=== PATIENT | male | born 1990 | race Caucasian/White ===

== ENCOUNTER 2020-06-30 02:01 | Emergency (ER) | payer OTHER, SELFPAY ==
--- NOTE | ~2020-06-30 | XR_ITS ---
EXAMINATION: XR chest 2V DATE: 06/30/2020 02:31 INDICATION: Chest pain TECHNIQUE: PA and lateral views of the chest are obtained. COMPARISON: None available FINDINGS: The lungs are free of acute opacities. There is no pleural effusion or pneumothorax. The ca rdiomediastinal silhouette is normal. The visualized bones and soft tissues are unremarkable. IMPRESSION: 1. No acute cardiopulmonary abnormality. Reviewed, dictated and finalized at location A. ICAL FELLOW
[2020-06-30 02:04] VITALS: BP 160/107; PULSE 74; RESP 23; TEMP 37.1; O2SAT 100
--- NOTE | 2020-06-30 02:11 | ED.CHESTPAIN ---
HPI - Chest Pain General Chief Complaint: Chest Pain Stated Complaint: chest pain with cardiac history Time Seen by Provider: 06/30/20 02:11 History of Present Illness HPI narrative: 29 yo male w/ h/o bicuspid aortic valve presents to the ED for chest pain. Sharp right sided chest pain for about 30 minutes. Started while using his computer and getting ready for bed. 7/10 in severity. radiated to the right jaw. Associated with SOB. On arrival to the ED his pain is now 2/10. Related Data Home Medications Medication Instructions Recorded Confirmed ibuprofen 400 mg PO BID 06/30/20 metoprolol tartrate 12.5 mg PO BID 06/30/20 pantoprazole 40 mg PO QAM 06/30/20 Allergies Allergy/AdvReac Type Severity Reaction Status Date / Time No Known Allergies Allergy Verified 06/30/20 02:15 Review of Systems Review of Systems: All systems reviewed & are unremarkable except as noted in HPI and below Constitutional: Constitutional: Denies chills and Denies fever(s) Eyes: Eyes: Reports no additional eye complaints ENT: Reports system reviewed and no additional complaints, except as documented Cardiovascular: Cardiovascular: Reports chest pain Respiratory: Respiratory: Reports as per HPI Gastrointestinal: Gastrointestinal: Reports no additional gastrointestinal complaints Neurologic: Reports dizziness PMFSH Past Medical History Medical History (Updated 06/30/20 @ 05:49 by Shay Gore MD) Bicuspid aortic valve Chest pain GERD (gastroesophageal reflux disease) Social History Social History (Updated 06/30/20 @ 03:41 by Shay Gore MD) Smoking status: Never smoker Exam Const: General: healthy appearing, no acute distress and alert Orientation/consciousness: patient oriented x3 HENMT: Head: normal to inspection Neck: Neck: normal visual inspection and no lymphadenopathy Chest: Chest palpation & inspection: no tenderness Resp: Effort & Inspection: normal respiratory effort Auscultation: clear to auscultation bilaterally, no rales, no rhonchi and no wheezes Cardio: Jugular venous distension: no JVD Rate: regular rate Rhythm: regular rhythm Heart sounds: no murmurs GI: Inspection: non-distended GI Palp: Yes Soft to palpation and No Tenderness to palpation present (GI) Skin: General skin exam: normal color Neuro: General: patient oriented x3, moves all extremities, no focal motor deficits and CN's II-XI intact bilaterally Speech: normal speech Gait exam (Neuro): Normal gait present Extrem: General: no edema Psych: Appearance: well kempt Affect: Anxious affect present Course Vital Signs Vital signs: Vital Signs Temperature 37.1 C 06/30/20 02:04 Pulse Rate 74 06/30/20 02:04 Respiratory Rate 23 H 06/30/20 02:04 Blood Pressure 160/107 H 06/30/20 02:04 Pulse Oximetry 100 06/30/20 02:04 Temperature 37.1 C 06/30/20 02:04 Pulse Rate 74 06/30/20 02:04 Respiratory Rate 23 H 06/30/20 02:04 Blood Pressure 160/107 H 06/30/20 02:04 Pulse Oximetry 100 06/30/20 02:13 MDM - Chest Pain Differential Diagnosis Differential diagnosis: Likely atypical chest pain, chest pain and other (GERD) Medical Records Data Attestation: I reviewed the patient's medical records. Lab Data Attestation: I reviewed the patient's lab results. Result diagrams: 06/30/20 02:50 06/30/20 02:50 Labs: Lab Results 06/30/20 06/30/20 06/30/20 Range/Units 02:50 02:50 02:50 WBC 8.2 (4.5-10.0) K/mm3 RBC 5.64 (4.6-6.20) M/mm3 Hgb 16.4 (14.0-18.0) g/dL Hct 48.1 (42.0-52.0) % MCV 85.3 (80-100) fl MCH 29.1 (26-34) pg MCHC 34.1 (32-36) g/dl RDW 12.9 (11.5-14.5) % Plt Count 175 (150-375) k/mm3 MPV 12.2 H (7.4-10.4) fl Immature Gran % (Auto) 0.2 (0-0.5) % Neut % (Auto) 51.2 (45.5-73.1) % Lymph % (Auto) 38.8 (18.3-44.2) % [place] % (Auto) 7.8 (2.6-8.5) % Eos % (Auto) 1.3 (0-4.4) % Ba
[2020-06-30 02:13] VITALS: O2SAT 100
--- NOTE | 2020-06-30 02:14 | ECG_ITS ---
Measurements Intervals [place] Rate: 72 P: 39 [place]: 129 QRS: -21 QRSD: 109 T: 25 QT: 377 QTc: 414 Interpretive Statements SINUS RHYTHM INCOMPLETE RIGHT BUNDLE BRANCH BLOCK BORDERLINE ECG Electronically Signed On 06-30-2020 7:06:49 CANDY COUNTER CLERK by Navid Wiggins D.O.
[2020-06-30] MEDS: ASPIRIN 81 MG CHEWABLE TABLET 324 MG PO (02:20)
[2020-06-30 03:09] LABS: Basophils Absolute Auto 0.1 K/mm3 (0.0-0.1); Basophils Percent Auto 0.7 % (0.2-1.2); Eosinophils Absolute Auto 0.1 K/mm3 (0-0.3); Eosinophils Percent Auto 1.3 % (0-4.4); Hematocrit 48.1 % (42.0-52.0); Hemoglobin 16.4 g/dL (14.0-18.0); Immature Granulocyte Absolute 0.02 K/mm3 (0.00-0.031); Immature Granulocyte Percent A 0.2 % (0-0.5); Lymphocytes Absolute Auto 3.19 K/mm3 (0.9-3.2); Lymphocytes Percent Auto 38.8 % (18.3-44.2); Mean Corpuscular HGB Conc 34.1 g/dl (32-36); Mean Corpuscular Hemoglobin 29.1 pg (26-34); Mean Corpuscular Volume 85.3 fl (80-100); Mean Platelet Volume 12.2 fl (7.4-10.4); Monocytes Absolute Auto 0.6 K/mm3 (0.1-0.6); Monocytes Percent Auto 7.8 % (2.6-8.5); Neutrophils Absolute Auto 4.2 K/mm3 (1.3-6.7); Neutrophils Percent Auto 51.2 % (45.5-73.1); Platelet Count Result 175 k/mm3 (150-375); Red Blood Count 5.64 M/mm3 (4.6-6.20); Red Cell Distribution Width 12.9 % (11.5-14.5); White Blood Count 8.2 K/mm3 (4.5-10.0)
[2020-06-30 03:19] LABS: INR 0.8; Prothrombin Time 11.9 Seconds (11.1-14.7)
[2020-06-30 03:20] LABS: Partial Thromboplastin Time 25.4 SECONDS (22.3-36.8)
[2020-06-30 03:22] LABS: Anion Gap 10 mmol/L (8-16); Blood Urea Nitrogen 15 mg/dL (9-20); Calcium 9.7 mg/dL (8.4-10.2); Carbon Dioxide 30 mmol/L (22-30); Chloride 103 mmol/L (98-107); Estimated CRCL calculation 140 ml/min; Estimated Glomerular Filt Rate > 60; Glucose 104 mg/dL (75-110); Potassium 3.9 mmol/L (3.4-5.0); Sodium 143 mmol/L (137-145)
[2020-06-30 03:33] LABS: Troponin I < 0.012 ng/mL (0.000-0.034)
[2020-06-30 05:42] LABS: Troponin I < 0.012 ng/mL (0.000-0.034)
[2020-06-30 06:09] VITALS: BP 115/71; PULSE 76; RESP 16; TEMP 36.3; O2SAT 98
== END 2020-06-30 06:09 | disposition home or self-care (01) ==
PROVIDERS: Emergency Provider Emergency Medicine; PCP Internal Medicine
DX: R07.89 Other chest pain (principal); K21.9 Gastro-esophageal reflux disease without esophagitis; I45.10 Unspecified right bundle-branch block; I35.9 Nonrheumatic aortic valve disorder, unspecified
CPT/HCPCS: 36415; 71046; 80048; 84484; 85025; 85610; 85730; 93005; 99284; A9270

== ENCOUNTER → 2020-07-29 00:55 | Outpatient (CLI) | payer OTHER, SELFPAY ==
[2020-07-29 19:49] LABS: SARS-CoV-2 RNA PCR Negative
== END ==
PROVIDERS: PCP Internal Medicine; Visit Provider Internal Medicine Gastroenterology
DX: Z01.812 Encounter for preprocedural laboratory examination (principal); Z20.822 Contact with and (suspected) exposure to COVID-19
CPT/HCPCS: C9803; U0003; U0005

== ENCOUNTER 2020-08-01 02:01 | Day surgery (SDC) | payer OTHER, SELFPAY ==
[2020-07-25 13:53] VITALS: BMI 30.9
[2020-08-01 09:28] VITALS: BP 125/85; PULSE 66; RESP 16; TEMP 36.3; O2SAT 100; BMI 31.6
[2020-08-01] MEDS: LACTATED RINGERS 1,000 ML 150 ML IV CONT (09:35)
--- NOTE | 2020-08-01 09:45 | WPDANESEPPF ---
Anes - Initial Pre Proc Eval Procedure: Operation Date: 08/01/20 10:45 Proposed Procedures p Esophagogastroduodenoscopy - Ke Mccallum MD Date/Time: 08/01/20 09:45 Surgeon: Ke Mccallum MD Pre Op Diagnosis: Atypical Chest Pain Patient Data Age: 29 Gender: M Height: 5 ft 9 in Weight: 97.2 kg Last Vital Signs Temp 97.4 F L 08/01/20 09:28 Pulse 66 08/01/20 09:28 Resp 16 08/01/20 09:28 BP 125/85 08/01/20 09:28 Pulse Ox 100 08/01/20 09:28 Allergies Allergy/AdvReac Type Severity Reaction Status Date / Time No Known Allergies Allergy Verified 08/01/20 09:27 Home Medications Medication Instructions Recorded Confirmed Type ibuprofen 400 mg PO BID 06/30/20 History metoprolol tartrate 12.5 mg PO BID 06/30/20 07/25/20 History pantoprazole 40 mg PO QAM 06/30/20 07/25/20 History Patient hx anesthesia problems: none Family hx anesthesia problems: none [facility] Past Medical History Medical History (Updated 07/01/20 @ 00:00 by Derek Palacios) Bicuspid aortic valve Chest pain GERD (gastroesophageal reflux disease) Social History Social History (Updated 06/30/20 @ 03:41 by Shay Gore MD) Smoking status: Never smoker Drinks per week: 3 Living arrangements: with family Gender identity (if verbalized by the patient): Male Spiritual care concerns: No Anes - Eval Final PreProcedure Day of Procedure 08/01/20 09:45 Patient weight: overweight Heart: regular rate and rhythm Lungs: clear to auscultation Airway: Mallampati scale class II Neurological: alert and oriented Last oral intake: >/= 8 hours ASA classification: II Emergent: no Anesthetic plan: proceed Anesthesia type and monitoring: general GIVS and standard monitoring Informed Consent: The patient's anesthetic plan and its attendant risks and benefits were discussed with the patient/family/POA. Questions were solicited and answers provided to the satisfaction of the patient/family/POA.
--- NOTE | 2020-08-01 10:05 | PM.HPGS ---
History of Present Illness History of Present Illness Consent: Risks, benefits, and alternatives have been discussed and questions answered. Patient agrees to proceed with procedure. Chief complaint: Atypical Chest Pain Narrative: Renard Samuel is a 29 year old male with gerd on pantoprazole for a year with good control of reflux but lately non-cardiac chest pain (cardiac work up negative), never had egd Review of Systems Constitutional: Constitutional: Denies headache(s) and Denies weakness Eyes: Eyes: Denies blurry vision ENT: Reports Normal hearing present, Denies headache(s) and Denies neck pain Cardiovascular: Cardiovascular: Denies chest pain and Denies dyspnea Respiratory: Respiratory: Denies dyspnea Gastrointestinal: Gastrointestinal: Reports no additional gastrointestinal complaints Genitourinary: Genitourinary: Denies dysuria Musculoskeletal: Musculoskeletal: Denies neck pain Integumentary/Breasts: Skin/Breast: Denies dry skin Neurologic: Reports Normal hearing present, Denies headache(s) and Denies weakness Psychiatric: Psychiatric: Denies anxiety Endocrine: Endocrine: Denies change in body appearance Hematologic/Lymphatic: Hematologic/Lymphatic: Denies easy bleeding Allergic/Immunologic: Allergic/Immunologic: Denies urticaria PMFSH Past Medical History Medical History (Updated 08/01/20 @ 10:07 by Ke Mccallum MD) Bicuspid aortic valve Chest pain GERD (gastroesophageal reflux disease) Non-cardiac chest pain Social History Social History (Updated 06/30/20 @ 03:41 by Shay Gore MD) Smoking status: Never smoker Drinks per week: 3 Living arrangements: with family Gender identity (if verbalized by the patient): Male Spiritual care concerns: No Meds Home Medications and Allergies Home Medications Medication Instructions Recorded Confirmed Type ibuprofen 400 mg PO BID 06/30/20 History metoprolol tartrate 12.5 mg PO BID 06/30/20 07/25/20 History pantoprazole 40 mg PO QAM 06/30/20 07/25/20 History Allergies Allergy/AdvReac Type Severity Reaction Status Date / Time No Known Allergies Allergy Verified 08/01/20 09:27 Vital Signs Vital Signs - 24 hr 08/01/20 09:28 Temperature 97.4 F L Pulse Rate 66 Respiratory Rate 16 Blood Pressure 125/85 Pulse Oximetry 100 Exam Const: General: comfortable and no acute distress HENMT: General nose exam: Normal nares present Eyes: General: appearance normal, both eyes and all related structures Neck: Neck: no JVD Resp: Auscultation: clear to auscultation bilaterally Cardio: Rate: regular rate Rhythm: regular rhythm GI: Inspection: non-distended GI Palp: Yes Soft to palpation Skin: General skin exam: normal color Neuro: General: gait normal Speech: normal speech Extrem: General: normal to inspection Psych: Mental Status: mental status grossly normal Assessment and Plan Assessment and plan (1) Non-cardiac chest pain: Code(s): R07.89 - Other chest pain Status: Acute Assessment and Plan: egd with bx (2) GERD (gastroesophageal reflux disease): Code(s): K21.9 - Gastro-esophageal reflux disease without esophagitis Status: Inactive
[2020-08-01] MEDS: BENZOCAINE (*SP) 60 ML SPRAY CAN (HURRICAINE) 1 SPRAY MUCOUS MEM (10:09)
[2020-08-01 10:24] VITALS: BP 102/68; PULSE 72; RESP 25; O2SAT 90
[2020-08-01 10:34] VITALS: BP 107/66; PULSE 71; RESP 20; O2SAT 94
[2020-08-01 10:44] VITALS: BP 110/80; PULSE 76; RESP 24; O2SAT 95
[2020-08-01 10:54] VITALS: BP 105/74; PULSE 72; RESP 21; O2SAT 98
== END 2020-08-01 11:04 | disposition home or self-care (01) ==
PROVIDERS: PCP Internal Medicine; Visit Provider Internal Medicine Gastroenterology
PROC: 0DJ08ZZ Inspection of Upper Intestinal Tract, Via Natural or Artificial Opening Endoscopic (ICD-10-PCS; CPT 43235; principal; 2020-08-01 10:45)
DX: K21.9 Gastro-esophageal reflux disease without esophagitis (principal); R07.89 Other chest pain; K44.9 Diaphragmatic hernia without obstruction or gangrene; K29.70 Gastritis, unspecified, without bleeding; Q23.1 Congenital insufficiency of aortic valve
CPT/HCPCS: 43239; 88305; C9803; J2704; J7120; U0003; U0005

== ENCOUNTER 2020-08-22 17:34 | Emergency (ER) | payer OTHER, SELFPAY ==
--- NOTE | ~2020-08-22 | XR_ITS ---
EXAMINATION: XR chest 2V DATE: 08/22/2020 18:52 INDICATION: Intermittent chest pain. TECHNIQUE: Frontal and lateral views of the chest were obtained. COMPARISON: Chest 2 views 06/30/2020 FINDINGS: There is no pneumonia, pleural effusion, or pneumothorax. The heart size is normal. IMPRESSION: 1. No acute cardiopulmonary disease. Reviewed, dictated and finalized at location A.
[2020-08-22 18:20] VITALS: BP 129/77; PULSE 81; RESP 18; TEMP 36.1; O2SAT 99
--- NOTE | 2020-08-22 18:31 | ECG_ITS ---
Measurements Intervals [place] Rate: 78 P: 43 [place]: 148 QRS: -29 QRSD: 112 T: 22 QT: 355 QTc: 405 Interpretive Statements SINUS RHYTHM INTRAVENTRICULAR CONDUCTION DELAY EARLY PRECORDIAL R/S TRANSITION BASELINE ARTIFACT- I, II, III, AVR, AVF, V1-V6 BORDERLINE ECG Electronically Signed On 08-22-2020 20:34:34 CDT by Navid Wiggins D.O.
--- NOTE | 2020-08-22 18:44 | ED.GENADULT ---
HPI - General Adult General Chief complaint: Chest Pain Stated complaint: CP, pt states was seen one month ago for same Time Seen by Provider: 08/22/20 18:44 Source: patient History of Present Illness HPI narrative: Patient is 29 y/o male complaining of chest pain. He describes his pain as sharp and mostly located on the right side of chest with some radiation to his back. He rates his pain as 8/10. There is no alleviating or exacerbating factor. He states that he had previous chest pain similar to this intermittently for last 2 years. He states that previous work up has been negative. Related Data Home Medications Medication Instructions Recorded Confirmed ibuprofen 400 mg PO BID 06/30/20 metoprolol tartrate 12.5 mg PO BID 06/30/20 07/25/20 pantoprazole 40 mg PO QAM 06/30/20 07/25/20 Allergies Allergy/AdvReac Type Severity Reaction Status Date / Time No Known Allergies Allergy Verified 08/01/20 09:27 Review of Systems Constitutional: Constitutional: Denies chills, Denies fever(s), Denies headache(s) and Denies weakness Eyes: Eyes: Denies blurry vision ENT: Denies headache(s) and Denies neck pain Cardiovascular: Cardiovascular: Reports chest pain and Denies dyspnea Respiratory: Respiratory: Denies cough and Denies dyspnea Gastrointestinal: Gastrointestinal: Denies abdominal pain, Denies diarrhea, Denies nausea and Denies vomiting Genitourinary: Genitourinary: Denies hematuria and Denies dysuria Musculoskeletal: Musculoskeletal: Denies back pain and Denies neck pain Neurologic: Denies headache(s) and Denies weakness [facility] Past Medical History Medical History Bicuspid aortic valve Chest pain GERD (gastroesophageal reflux disease) Non-cardiac chest pain Social History Social History Smoking status: Never smoker Drinks per week: 3 Gender identity (if verbalized by the patient): Male Spiritual care concerns: No Exam Const: General: no acute distress and well developed Orientation/consciousness: oriented to person, oriented to place, oriented to time and patient oriented x3 HENMT: Head: normocephalic Ears: external ears normal General nose exam: Normal external nose present Eyes: General: appearance normal, both eyes and all related structures Conjunctivae: conjunctivae normal Neck: Neck: normal visual inspection and full ROM Chest: Chest palpation & inspection: normal inspection of the chest and no tenderness Resp: Effort & Inspection: normal respiratory effort Auscultation: clear to auscultation bilaterally Cardio: Rate: regular rate Rhythm: regular rhythm GI: GI Palp: No abdominal tenderness and Yes Soft to palpation Skin: General skin exam: normal color and turgor normal Neuro: General: oriented to person, oriented to place, oriented to time and patient oriented x3 Cognition (Neuro): normal cognition Extrem: General: normal to inspection, full ROM and no pedal edema Psych: Appearance: grossly normal Mental Status: mental status grossly normal Affect: normal affect Course Vital Signs Vital signs: Vital Signs Temperature 36.1 C L 08/22/20 18:20 Pulse Rate 81 08/22/20 18:20 Respiratory Rate 18 08/22/20 18:20 Blood Pressure 129/77 08/22/20 18:20 Pulse Oximetry 99 08/22/20 18:20 Temperature 36.1 C L 08/22/20 18:20 Pulse Rate 79 08/22/20 22:33 Respiratory Rate 16 08/22/20 22:33 Blood Pressure 123/87 08/22/20 22:33 Pulse Oximetry 98 08/22/20 22:33 Medical Decision Making Vital Signs Vital Signs: Vital Signs Temperature 36.1 C L 08/22/20 18:20 Pulse Rate 81 08/22/20 18:20 Respiratory Rate 18 08/22/20 18:20 Blood Pressure 129/77 08/22/20 18:20 Pulse Oximetry 99 08/22/20 18:20 Temperature 36.1 C L 08/22/20 18:20 Pulse Rate 79 08/22/20 22:33 Respiratory Rate 16 08/22/20 22:33 Blood Pressure 123/87
[2020-08-22 18:51] LABS: Basophils Absolute Auto 0.1 K/mm3 (0.0-0.1); Basophils Percent Auto 0.7 % (0.2-1.2); Eosinophils Absolute Auto 0.1 K/mm3 (0-0.3); Hematocrit 45.3 % (42.0-52.0); Hemoglobin 15.5 g/dL (14.0-18.0); Immature Granulocyte Absolute 0.02 K/mm3 (0.00-0.031); Immature Granulocyte Percent A 0.3 % (0-0.5); Lymphocytes Absolute Auto 2.11 K/mm3 (0.9-3.2); Lymphocytes Percent Auto 29.2 % (18.3-44.2); Mean Corpuscular HGB Conc 34.2 g/dl (32-36); Mean Corpuscular Hemoglobin 28.2 pg (26-34); Mean Corpuscular Volume 82.4 fl (80-100); Mean Platelet Volume 11.8 fl (7.4-10.4); Monocytes Absolute Auto 0.5 K/mm3 (0.1-0.6); Monocytes Percent Auto 6.9 % (2.6-8.5); Neutrophils Absolute Auto 4.5 K/mm3 (1.3-6.7); Neutrophils Percent Auto 61.9 % (45.5-73.1); Platelet Count Result 192 k/mm3 (150-375); Red Cell Distribution Width 12.3 % (11.5-14.5); White Blood Count 7.2 K/mm3 (4.5-10.0)
[2020-08-22 19:00] LABS: Potassium 3.8 mmol/L (3.4-5.0)
[2020-08-22 19:12] LABS: INR 0.9; Partial Thromboplastin Time 24.7 SECONDS (22.3-36.8); Prothrombin Time 12.5 Seconds (11.1-14.7)
[2020-08-22 19:13] LABS: Troponin I < 0.012 ng/mL (0.000-0.034)
[2020-08-22 19:15] LABS: Anion Gap 9 mmol/L (8-16); Blood Urea Nitrogen 11 mg/dL (9-20); Calcium 9.3 mg/dL (8.4-10.2); Carbon Dioxide 29 mmol/L (22-30); Chloride 101 mmol/L (98-107); Estimated CRCL calculation 137 ml/min; Estimated Glomerular Filt Rate > 60; Glucose 116 mg/dL (75-110); Sodium 139 mmol/L (137-145)
[2020-08-22 19:30] LABS: D Dimer 0.27 ug/mL (<0.48)
[2020-08-22 20:48] VITALS: BP 132/82; PULSE 77; RESP 22; O2SAT 98
[2020-08-22 22:08] LABS: Troponin I < 0.012 ng/mL (0.000-0.034)
[2020-08-22 22:33] VITALS: BP 123/87; PULSE 79; RESP 16; O2SAT 98
== END 2020-08-22 22:34 | disposition home or self-care (01) ==
PROVIDERS: Emergency Provider Emergency Medicine; PCP Internal Medicine
DX: R07.9 Chest pain, unspecified (principal); K21.9 Gastro-esophageal reflux disease without esophagitis
CPT/HCPCS: 36415; 71046; 80048; 84484; 85025; 85380; 85610; 85730; 93005; 99284

== ENCOUNTER → 2020-09-02 10:25 | Outpatient (CLI) | payer OTHER, SELFPAY ==
--- NOTE | ~2020-09-02 | US_ITS ---
US abdomen complete DATE: 09/02/2020 11:04 INDICATION: Epigastric abdominal pain TECHNIQUE: Real-time imaging and Doppler analysis COMPARISON: None FINDINGS: No hepatic or pancreatic space-occupying mass lesion Normal hepatopedal portal venous flow direction. No gallstones, gallbladder wall thickening or perich olecystic fluid. Negative sonographic Alfonso's sign. Common bile duct measures 3.9 mm, normal. Normal caliber of the abdominal aorta. Flow is demonstrated at the inferior vena cava. No renal mass lesion or hydronephrosis. IMPRESSION: Negative examination Reviewed, dictated and finalized at Location A. Reviewed, dictated and finalized at location A. IMPRESSION: Negative examination
== END ==
PROVIDERS: PCP Internal Medicine; Visit Provider Internal Medicine
DX: R10.13 Epigastric pain (principal)
CPT/HCPCS: 76700

== ENCOUNTER → 2020-11-14 08:46 | Outpatient (CLI) | payer OTHER, SELFPAY ==
--- NOTE | ~2020-11-14 | CT_ITS ---
EXAMINATION: CT diagnostic chest wo/w con DATE: 11/14/2020 09:30 INDICATION: Recurrent chest pain, bicuspid aortic valve, aortic root enlargement TECHNIQUE: Computed tomography (CT) of the chest was prior to and then following the administration o f 75 cc of Omnipaque 350 without intravenous contrast. The dose-length product (DLP) was 1061.48 mGy- cm. Automated exposure control and iterative reconstruction technique were employed. COMPARISON: None FINDINGS: The ascending aorta measures 4.1 cm at the sinuses of Valsalva and 3.5 cm at the level of t he main pulmonary artery. There is no dissection. The descending aorta is normal in caliber. The hear t size is normal. There are no pathologically enlarged thoracic lymph nodes. Triangular soft tissue d ensity of the anterior mediastinum has the appearance of residual thymus. The lungs are free of acute opacities. There is no pleural effusion or pneumothorax. The visualized bones and soft tissues are u nremarkable. IMPRESSION: 1. 4.1 cm ascending aorta at the level of the sinuses of Valsalva. No evidence of dissection or acute abnormality. Reviewed, dictated and finalized at location A.
[2020-11-14 09:10] LABS: Estimated Glomerular Filt Rate > 60
== END ==
PROVIDERS: Visit Provider Internal Medicine Cardiovascular Disease
DX: Q23.1 Congenital insufficiency of aortic valve (principal); R07.9 Chest pain, unspecified; I77.89 Other specified disorders of arteries and arterioles
CPT/HCPCS: 71270; Q9967

== ENCOUNTER → 2021-05-16 02:36 | Outpatient (CLI) | payer OTHER, SELFPAY ==
[2021-05-16 19:07] LABS: SARS-CoV-2 RNA PCR Negative
== END ==
PROVIDERS: PCP Hospitalist; Visit Provider Hospitalist
DX: J02.9 Acute pharyngitis, unspecified (principal); Z20.822 Contact with and (suspected) exposure to COVID-19
CPT/HCPCS: C9803; U0003; U0005

== ENCOUNTER 2021-08-28 02:44 | Day surgery (SDC) | payer OTHER, SELFPAY ==
[2021-08-22 10:42] VITALS: BMI 30.9
[2021-08-28 09:41] VITALS: BP 130/82; PULSE 96; RESP 18; TEMP 36.2; O2SAT 97
[2021-08-28] MEDS: LACTATED RINGERS 1,000 ML 150 ML IV CONT (09:48)
--- NOTE | 2021-08-28 09:56 | WPDHPUPDATE1 ---
History and Physical Update Update Date/Time: 08/28/21 09:56 History and Physical has been reviewed, including an updated exam of the patient. There are NO changes in the patient's condition. Risks, benefits, and alternatives have been discussed and questions answered. Patient agrees to proceed with procedure.
--- NOTE | 2021-08-28 09:59 | P.PNAN_ITS ---
Anes - Initial Pre Proc Eval Procedure: Operation Date: 08/28/21 11:00 Proposed Procedures p Colonoscopy - Ke Mccallum MD Date/Time: 08/28/21 09:59 Surgeon: Ke Mccallum MD Pre Op Diagnosis: diarrhea Patient Data Age: 30 Gender: M Height: 1.78 m Weight: 93 kg Last Vital Signs Temp 97.1 F L 08/28/21 09:41 Pulse 96 08/28/21 09:41 Resp 18 08/28/21 09:41 BP 130/82 08/28/21 09:41 Pulse Ox 97 08/28/21 09:41 Allergies Allergy/AdvReac Type Severity Reaction Status Date / Time No Known Allergies Allergy Verified 08/28/21 09:40 Home Medications Medication Instructions Recorded Confirmed Type metoprolol tartrate 12.5 mg PO BID 06/30/20 08/22/21 History pantoprazole 40 mg PO QAM 06/30/20 08/22/21 History amlodipine 2.5 mg tablet 7.5 mg PO DAILY tablet 08/08/21 08/22/21 History Patient hx anesthesia problems: none Family hx anesthesia problems: none Results Review: All pre-operative results and documents have been reviewed as part of the pre-operative evaluation. [facility], [facility] Past Medical History Medical History (Updated 08/08/21 @ 09:[address]) Bicuspid aortic valve Chest pain Frequent loose stools Gallbladder sludge GERD (gastroesophageal reflux disease) Non-cardiac chest pain Social History Social History Smoking status: Never smoker Alcohol intake: current Drinks per week: 2 Alcohol use details: 2-3 drinks weekly Substance use: never Substance use type: does not use Living arrangements: alone Gender identity (if verbalized by the patient): Male Spiritual care concerns: No Anes - Eval Final PreProcedure Day of Procedure 08/28/21 09:59 Patient weight: overweight Heart: regular rate and rhythm Lungs: clear to auscultation Airway: Mallampati scale Neurological: alert and oriented Last oral intake: >/= 8 hours ASA classification: II Emergent: no Anesthetic plan: proceed Anesthesia type and monitoring: general GIVS and standard monitoring Results Review: All pre-operative results and documents have been reviewed as part of the pre-operative evaluation. Informed Consent: The patient's anesthetic plan and its attendant risks and benefits were discussed with the patient/family/POA. Questions were solicited and answers provided to the satisfaction of the patient/family/POA.
[2021-08-28 10:12] VITALS: BP 102/72; PULSE 84; RESP 16; O2SAT 97
[2021-08-28 10:22] VITALS: BP 102/77; PULSE 78; RESP 17; O2SAT 96
[2021-08-28 10:32] VITALS: BP 117/76; PULSE 87; RESP 19; O2SAT 98
== END 2021-08-28 10:40 | disposition home or self-care (01) ==
PROVIDERS: PCP Hospitalist; Visit Provider Internal Medicine Gastroenterology
PROC: 0DJD8ZZ Inspection of Lower Intestinal Tract, Via Natural or Artificial Opening Endoscopic (ICD-10-PCS; CPT 45378; principal; 2021-08-28 11:00)
DX: R10.11 Right upper quadrant pain (principal); K52.9 Noninfective gastroenteritis and colitis, unspecified; K21.9 Gastro-esophageal reflux disease without esophagitis; K82.8 Other specified diseases of gallbladder; Q23.1 Congenital insufficiency of aortic valve
CPT/HCPCS: 45380; 88305; J2704; J7120

== ENCOUNTER 2021-09-22 08:08 | Outpatient (CLI) | payer OTHER, SELFPAY ==
--- NOTE | ~2021-09-22 | NM_ITS ---
EXAMINATION: NM hepatobiliary w pharm DATE: 09/22/2021 09:58 INDICATION: Right upper quadrant abdominal pain COMPARISON: None. TECHNIQUE: 4.7 mCi Tc-99m mebrofenin (Choletec) was administered intravenously. Scintigraphic images of the abdomen were obtained for one hour. 1.9 mcg sincalide (Kinevac) was administered by slow intr avenous infusion, and imaging was continued for 30 minutes. Gallbladder ejection fraction was calcula jeb by the technologist. FINDINGS: There is normal clearance of radiotracer from the blood pool. There is homogeneous tracer uptake by t he liver. Activity progresses to the gallbladder and bowel. The gallbladder ejection fraction (GBEF) is 70% (normal 10-90%, but most patient with gallbladder dysfunction have GBEF < 35% which does over lap with the normal range). IMPRESSION: 1. Normal hepatobiliary scan. Reviewed, dictated and finalized at location B.
== END 2021-09-22 08:09 | disposition home or self-care (01) ==
PROVIDERS: PCP Hospitalist
DX: R10.11 Right upper quadrant pain (principal)
CPT/HCPCS: 78227; A9537; J2805